=== PATIENT | female | born 1955 | race Caucasian/White ===

== ENCOUNTER → 2023-09-02 11:05 | Outpatient (REF) | payer MEDICARE, SELFPAY ==
[2023-09-02 13:27] LABS: ALT (SGPT) 29 U/L (0-35); AST (SGOT) 23 U/L (14-36); Albumin 4.6 g/dl (3.5-5.0); Alkaline Phosphatase 91 U/L (38-126); Blood Urea Nitrogen 22 mg/dl (7-17); Calcium 10.1 mg/dl (8.4-10.2); Carbon Dioxide 28 mmol/L (22-30); Chloride 98 mmol/L (98-107); Glucose 91 mg/dl (70-99); Iron 100 ug/dl (37-170); Potassium 4.4 mmol/L (3.5-5.1); Sodium 134 mmol/L (135-145); Total Bilirubin 0.4 mg/dl (0.2-1.3); Total Protein 7.3 g/dl (6.3-8.2); eGFR > 60.00
[2023-09-02 13:36] LABS: Percent Saturation 32 % (20-50); Total Iron Binding Capacity 304 ug/dl (265-497)
[2023-09-02 13:44] LABS: Free T3 2.92 pg/ml (2.77-5.27); Free T4 0.69 ng/dl (0.78-2.19); Vitamin D, 25-OH*** 83.1 ng/mL (30-80)
[2023-09-02 13:57] LABS: TSH 1.45 uIU/ml (0.47-4.68)
[2023-09-02 14:30] LABS: Glycohemoglobin (HgbA1c) 5.7 % (4.0-5.6)
== END ==
LOC: REG 11:05
PROVIDERS: ATTENDING PHYSICIAN Internal Medicine Endocrinology, Diabetes & Metabolism
DX: E03.9 Hypothyroidism, unspecified (principal); R73.09 Other abnormal glucose; K76.0 Fatty (change of) liver, not elsewhere classified; E55.9 Vitamin D deficiency, unspecified; E61.1 Iron deficiency
CPT/HCPCS: 36415; 80053; 82306; 82728; 83036; 83540; 83550; 84439; 84443; 84481

== ENCOUNTER → 2024-03-02 12:11 | Outpatient (REF) | payer MEDICARE, SELFPAY ==
[2024-03-02 13:21] LABS: Glycohemoglobin (HgbA1c) 5.3 % (4.0-5.6)
[2024-03-02 13:51] LABS: ALT (SGPT) 26 U/L (0-35); AST (SGOT) 20 U/L (14-36); Albumin 4.6 g/dl (3.5-5.0); Alkaline Phosphatase 75 U/L (38-126); Blood Urea Nitrogen 26 mg/dl (7-17); Calcium 9.8 mg/dl (8.4-10.2); Carbon Dioxide 27 mmol/L (22-30); Chloride 103 mmol/L (98-107); Glucose 94 mg/dl (70-99); Magnesium 1.7 mg/dl (1.6-2.3); Potassium 5.1 mmol/L (3.5-5.1); Sodium 142 mmol/L (135-145); Total Bilirubin 0.4 mg/dl (0.2-1.3); Total Protein 7.2 g/dl (6.3-8.2); eGFR > 60.00
[2024-03-02 13:59] LABS: Free T4 0.56 ng/dl (0.78-2.19); Vitamin D, 25-OH*** 71.7 ng/mL (30-80)
[2024-03-02 14:07] LABS: Free T3 2.73 pg/ml (2.77-5.27)
[2024-03-02 14:12] LABS: TSH 4.37 uIU/ml (0.47-4.68)
== END ==
LOC: REG 12:11
PROVIDERS: ATTENDING PHYSICIAN Internal Medicine Endocrinology, Diabetes & Metabolism
DX: E03.9 Hypothyroidism, unspecified (principal); R73.09 Other abnormal glucose; Z13.1 Encounter for screening for diabetes mellitus; K76.0 Fatty (change of) liver, not elsewhere classified; L65.9 Nonscarring hair loss, unspecified; E61.1 Iron deficiency; E55.9 Vitamin D deficiency, unspecified
CPT/HCPCS: 36415; 80053; 82306; 82627; 83036; 83735; 84403; 84439; 84443; 84481

== ENCOUNTER → 2024-03-11 06:39 | Outpatient (REF) | payer MEDICARE, SELFPAY ==
[2024-03-11] MEDS: LEXISCAN 0.4 MG IV (08:45)
[2024-03-11] MEDS: AMINOPHYLLINE 75 MG IV (09:04)
== END ==
LOC: RCS 06:39
PROVIDERS: ATTENDING PHYSICIAN Family Medicine; FAMILY PHYSICIAN Nurse Practitioner; REFERRING PHYSICIAN Internal Medicine Endocrinology, Diabetes & Metabolism
DX: R07.89 Other chest pain (principal); Z86.79 Personal history of other diseases of the circulatory system; I51.7 Cardiomegaly
CPT/HCPCS: 71046; 78452; 93017; A9500; J2785

== ENCOUNTER → 2024-05-18 07:31 | Outpatient (REF) | payer MEDICARE, SELFPAY ==
[2024-05-18 08:16] LABS: % Eosinophils 4.8 % (0-6); % Immature Granulocytes 0.2 % (0-0.5); % Monocytes 7.8 % (1.7-9.3); % Neutrophils 56.2 % (42.2-75.2); Absolute Basophils 0.1 10^3/uL (0-0.2); Absolute Eosinophils 0.2 10^3/uL (0-0.7); Absolute Lymphocytes 1.5 10^3/uL (1.2-3.4); Absolute Monocytes 0.4 10^3/uL (0.1-0.6); Absolute Neutrophils 2.8 10^3/uL (1.4-6.5); Hematocrit 39.5 % (37.0-47.0); Mean Corp Hgb Conc. 32.9 g/dL (33.0-37.0); Mean Corpuscular Hgb 29.7 pg (27.0-31.0); Mean Corpuscular Volume 90.2 fL (81.0-99.0); Mean Platelet Volume 9.9 fL (7.4-10.4); Nucleated Red Blood Cells % 0 %; Platelet Count 256 10^3/uL (130-400); Red Blood Cell Count 4.38 10^6/uL (4.20-5.40); Red Cell Dist. Width 11.9 % (11.5-14.5)
[2024-05-18 09:04] LABS: ALT (SGPT) 26 U/L (0-35); AST (SGOT) 21 U/L (14-36); Albumin 4.5 g/dl (3.5-5.0); Alkaline Phosphatase 72 U/L (38-126); Blood Urea Nitrogen 30 mg/dl (7-17); Calcium 9.3 mg/dl (8.4-10.2); Carbon Dioxide 26 mmol/L (22-30); Chloride 99 mmol/L (98-107); Glucose 97 mg/dl (70-99); Potassium 4.5 mmol/L (3.5-5.1); Sodium 136 mmol/L (135-145); Total Bilirubin 0.5 mg/dl (0.2-1.3); Total Protein 7.2 g/dl (6.3-8.2); eGFR > 60.00
[2024-05-18 09:21] LABS: Free T3 3.18 pg/ml (2.77-5.27)
[2024-05-18 09:34] LABS: TSH 3.68 uIU/ml (0.47-4.68)
[2024-05-20 12:56] LABS: Quantiferon Mitogen minus NIL 9.99 IU/mL; Quantiferon NIL 0.01 IU/mL; Quantiferon TB Gold Plus Negative (Negative)
== END ==
LOC: REG 07:31
PROVIDERS: ATTENDING PHYSICIAN Dermatology; FAMILY PHYSICIAN Internal Medicine Endocrinology, Diabetes & Metabolism
DX: Z79.899 Other long term (current) drug therapy (principal); E03.9 Hypothyroidism, unspecified; Z73.9 Problem related to life management difficulty, unspecified; K76.0 Fatty (change of) liver, not elsewhere classified
CPT/HCPCS: 36415; 80053; 84439; 84443; 84481; 85025; 86480

== ENCOUNTER → 2024-09-16 10:49 | Outpatient (REF) | payer MEDICARE, SELFPAY ==
[2024-09-16 11:47] LABS: % Basophils 0.8 % (0-2); % Eosinophils 5.2 % (0-6); % Immature Granulocytes 0.2 % (0-0.5); % Lymphocytes 27.8 % (20.5-51.1); % Monocytes 8.5 % (1.7-9.3); % Neutrophils 57.5 % (42.2-75.2); Absolute Eosinophils 0.3 10^3/uL (0-0.7); Absolute Lymphocytes 1.4 10^3/uL (1.2-3.4); Absolute Monocytes 0.4 10^3/uL (0.1-0.6); Absolute Neutrophils 2.9 10^3/uL (1.4-6.5); Hematocrit 40.6 % (37.0-47.0); Hemoglobin 13.6 g/dL (12.0-16.0); Mean Corp Hgb Conc. 33.5 g/dL (33.0-37.0); Mean Corpuscular Hgb 30.4 pg (27.0-31.0); Mean Corpuscular Volume 90.6 fL (81.0-99.0); Mean Platelet Volume 9.9 fL (7.4-10.4); Nucleated Red Blood Cells % 0 %; Platelet Count 238 10^3/uL (130-400); Red Blood Cell Count 4.48 10^6/uL (4.20-5.40); Red Cell Dist. Width 12.1 % (11.5-14.5)
[2024-09-16 12:09] LABS: Glycohemoglobin (HgbA1c) 5.6 % (4.0-5.6)
[2024-09-16 12:13] LABS: ALT (SGPT) 30 U/L (0-35); AST (SGOT) 19 U/L (14-36); Albumin 4.1 g/dl (3.5-5.0); Alkaline Phosphatase 70 U/L (38-126); Blood Urea Nitrogen 19 mg/dl (7-17); Carbon Dioxide 27 mmol/L (22-30); Chloride 109 mmol/L (98-107); Glucose 108 mg/dl (70-99); HDL Cholesterol 48 mg/dl; Iron 129 ug/dl (37-170); LDL Cholesterol, Calculated 176 mg/dl; Magnesium 1.8 mg/dl (1.6-2.3); Potassium 4.7 mmol/L (3.5-5.1); Sodium 145 mmol/L (135-145); Total Bilirubin 0.6 mg/dl (0.2-1.3); Total Cholesterol 250 mg/dl (50-199); Total Protein 6.9 g/dl (6.3-8.2); Triglyceride 132 mg/dl (10-149); Very Low Density Lipoprotein 26 mg/dl (0-30); eGFR > 60.00
[2024-09-16 12:32] LABS: Free T3 5.49 pg/ml (2.77-5.27); Free T4 0.81 ng/dl (0.78-2.19); Vitamin D, 25-OH*** 68.2 ng/mL (30-80)
[2024-09-16 12:44] LABS: TSH 0.16 uIU/ml (0.47-4.68)
[2024-09-16 12:48] LABS: Ferritin 71.6 ng/ml (11.1-264.0)
[2024-09-16 13:05] LABS: Vitamin B12 633 pg/ml (239-931)
== END ==
LOC: REG 10:49
PROVIDERS: ATTENDING PHYSICIAN Internal Medicine Endocrinology, Diabetes & Metabolism; OTHER PHYSICIAN Nurse Practitioner
DX: E03.9 Hypothyroidism, unspecified (principal); Z79.899 Other long term (current) drug therapy; K76.0 Fatty (change of) liver, not elsewhere classified
CPT/HCPCS: 36415; 80053; 80061; 82306; 82607; 82728; 83036; 83540; 83735; 84439; 84443; 84481; 85025

== ENCOUNTER → 2025-01-01 08:36 | Outpatient (REF) | payer MEDICARE, SELFPAY ==
[2025-01-01 10:41] LABS: Free T3 5.04 pg/ml (2.77-5.27)
[2025-01-01 10:43] LABS: Iron 116 ug/dl (37-170)
[2025-01-01 10:53] LABS: Total Iron Binding Capacity 305 ug/dl (265-497)
[2025-01-01 10:55] LABS: TSH 0.36 uIU/ml (0.47-4.68)
[2025-01-01 10:59] LABS: Ferritin 86.7 ng/ml (11.1-264.0)
== END ==
LOC: REG 08:36
PROVIDERS: ATTENDING PHYSICIAN Internal Medicine Endocrinology, Diabetes & Metabolism
DX: E03.9 Hypothyroidism, unspecified (principal); E61.1 Iron deficiency; D51.9 Vitamin B12 deficiency anemia, unspecified
CPT/HCPCS: 36415; 82728; 83540; 83550; 84439; 84443; 84481

== ENCOUNTER → 2025-04-19 08:59 | Outpatient (REF) | payer MEDICARE, SELFPAY ==
[2025-04-19 10:53] LABS: Hematocrit 39.6 % (37.0-47.0); Hemoglobin 13.2 g/dL (12.0-16.0); Mean Corp Hgb Conc. 33.3 g/dL (33.0-37.0); Mean Corpuscular Volume 88.2 fL (81.0-99.0); Nucleated Red Blood Cells % 0 %; Platelet Count 283 10^3/uL (130-400); Red Cell Dist. Width 12.3 % (11.5-14.5)
[2025-04-19 11:49] LABS: C-Reactive Protein < 5.00 mg/L (0.0-10.00)
[2025-04-19 11:58] LABS: ALT (SGPT) 27 U/L (0-35); AST (SGOT) 21 U/L (14-36); Albumin 4.7 g/dl (3.5-5.0); Alkaline Phosphatase 82 U/L (38-126); Blood Urea Nitrogen 20 mg/dl (7-17); Calcium 9.7 mg/dl (8.4-10.2); Carbon Dioxide 25 mmol/L (22-30); Chloride 102 mmol/L (98-107); Glucose 101 mg/dl (70-99); Potassium 4.5 mmol/L (3.5-5.1); Sodium 134 mmol/L (135-145); Total Protein 7.7 g/dl (6.3-8.2); eGFR > 60.00
[2025-04-19 12:06] LABS: Vitamin D, 25-OH*** 84.9 ng/mL (30-80)
[2025-04-19 12:07] LABS: Free T3 3.60 pg/ml (2.77-5.27)
[2025-04-19 12:19] LABS: TSH 0.79 uIU/ml (0.47-4.68)
[2025-04-19 12:38] LABS: Glycohemoglobin (HgbA1c) 5.5 % (4.0-5.9)
== END ==
LOC: REG 08:59
PROVIDERS: ATTENDING PHYSICIAN Internal Medicine Endocrinology, Diabetes & Metabolism
DX: E03.9 Hypothyroidism, unspecified (principal); R73.09 Other abnormal glucose; E55.9 Vitamin D deficiency, unspecified; Z13.1 Encounter for screening for diabetes mellitus; M25.50 Pain in unspecified joint
CPT/HCPCS: 36415; 80053; 82306; 83036; 84439; 84443; 84481; 85025; 85652; 86140

== ENCOUNTER 2025-05-19 16:29 | Emergency (ER) | payer MEDICARE, SELFPAY ==
[2025-05-19 16:48] VITALS: BP 147/74
[2025-05-19 17:09] LABS: Hematocrit 38.0 % (37.0-47.0); Hemoglobin 12.6 g/dL (12.0-16.0); Mean Corp Hgb Conc. 33.2 g/dL (33.0-37.0); Mean Corpuscular Volume 89.0 fL (81.0-99.0); Nucleated Red Blood Cells % 0 %; Platelet Count 209 10^3/uL (130-400); Red Cell Dist. Width 12.9 % (11.5-14.5)
[2025-05-19 17:19] LABS: COVID-19 Antigen Negative (Negative)
[2025-05-19 17:29] LABS: ALT (SGPT) 25 U/L (0-35); AST (SGOT) 20 U/L (14-36); Albumin 4.4 g/dl (3.5-5.0); Alkaline Phosphatase 86 U/L (38-126); Blood Urea Nitrogen 16 mg/dl (7-17); Calcium 9.3 mg/dl (8.4-10.2); Carbon Dioxide 26 mmol/L (22-30); Glucose 114 mg/dl (70-99); Sodium 135 mmol/L (135-145); Total Protein 7.1 g/dl (6.3-8.2); eGFR > 60.00
[2025-05-19 17:59] LABS: Chloride 102 mmol/L (98-107); Potassium 3.9 mmol/L (3.5-5.1)
--- NOTE | 2025-05-19 20:33 | ED.GENMED ---
History of Present Illness
General
Chief Complaint: Cough
Source: patient and family (Daughter)
Time Seen by Provider: 05/19/25 20:24
History of Present Illness
History of Present Illness:
70-year-old female presents to the emergency room complaining of feeling unwell for the past week. She had some runny nose, cough and sore throat. Over the past couple days she has developed mild diarrhea and today while coughing had some blood in
her sputum. She describes it as pink sputum. She does not take any oral anticoagulants. She does not feel particularly short of breath.
Past History
Past History
ED Past Medical History: Hypothyroidism and Other (DM, asthma,)
ED Past Surgical History: and Tonsilectomy
Social History
Tobacco: Non-smoker
Drug: None
Living: with family
Phy Exam
Physical Exam
Physical Exam:
General: Awake, Alert, Oriented X3. No acute distress. High BMI
Vitals: unremarkable
Head: Atraumatic
Eyes: Pupils equal, EOMI
Throat: Airway intact, no exudates
Neck: Trachea midline
Lungs: Clear and equal b/l
Heart: Regular rate, no murmurs
Abd: Soft, Nontender, No pulsatile mass
Neuro: Nonfocal
Skin: Warm, dry, no rash
Extremities: pulses equal b/l, no edema
Course
Orders/Labs/Results
Orders:
Orders
05/19/25 16:59
COVID-19 Antigen Urgent
Source: Nasal Swab
Complete Blood Count/With Diff Urgent
Comprehensive Metabolic Panel Urgent
Influenza A+B Rapid Molecular Urgent
TIMUR Source: Nasal Swab
Specimen Description:
05/19/25 20:25
CR Chest - 2 Views Urgent
Comment:
Reason For Exam: cough, bloody sputum
Abnormal Lab Results
05/19/25
16:59
WBC 4.7 L 10^3/uL
(4.8-10.8)
Absolute Lymphs (auto) 0.8 L 10^3/uL
(1.2-3.4)
Lymphocytes % 17.6 L %
(20.5-51.1)
Monocytes % 12.9 H %
(1.7-9.3)
Glucose 114 H mg/dl
(70-99)
05/19/25 16:59
05/19/25 16:59
Vital Signs
Initial and Last Documented VS:
Initial Vital Signs
Pulse Resp BP Pulse Ox
77 18 147/74 93
05/19/25 16:48 05/19/25 16:48 05/19/25 16:48 05/19/25 16:48
Last Documented Vital Signs
Temp Pulse Resp BP Pulse Ox
98.8 F 72 18 156/86 96
05/19/25 16:49 05/19/25 21:32 05/19/25 21:32 05/19/25 21:32 05/19/25 21:32
MDM/Problems Addressed
Differential Diagnosis Includes:
Hemoptysis from coughing, bronchitis, mass or other lower lung pathology
MDM/Problems Addressed:
Chest x-ray is unremarkable. Labs are unremarkable. Patient's flu positive. I believe her blood-tinged sputum is related to her cough. Stay for discharge and follow-up as an
*Radiology
Radiology exam reviewed: preliminary read by ED provider (No acute abnormality on my review of the patient's chest x-ray)
*Pulse Oximetry
SaO2: 93
Patient hypoxic: no
*Critical Care Note
Total Time (30-74mins, 75-104mins- exclusive of procedures): Not Applicable
ED Attending Note
-
Portions of this chart may have been created with voice recognition software.� Occasional wrong word or��sound alike� substitutions may have occurred due to the inherent limitations of voice recognition software.
Discharge Plan
Departure
Patient Disposition: Home (Routine Discharge)
Date of Disposition: 05/19/25
Time of Disposition: 22:26
Patient with high blood pressure during this ER visit?: No
Condition: Good
Discharge Problem:
Influenza A
Instructions: Flu in adults - ED (DC)
Prescriptions:
New
benzonatate 100 mg capsule
100 mg PO TID PRN (Reason: Cough) Qty: 20 0RF
No Action
hydrochlorothiazide 25 MG tablet
25 mg PO BID
metformin 500 MG tablet extended release 24 hr
100 mg PO .EVENING
metformin 500 MG tablet extended release 24 hr
500 mg PO .MORNING
levofloxacin 500 MG tablet
500 mg PO DAILY Qty: 14 0RF
Saccharomyces boulardii [Florastor] 250 MG powder in packet
250 mg PO DAILY Qty: 14 0RF
Referrals:
Sonia Trivedi MD [Family Provider, Internal Medicine]
Activity Restrictions/Additional Instructions:
Your chest x-ray looks normal to me. Rest your labs are reassuring except of course for your flu test which is positive.
Interventions
Interventions:
*General Assessment Last Done: 05/19/25 21:26
*Neglect/Abuse Screening Last Done: 05/19/25 21:26
*ED COVID-19 Vaccine History Last Done: 05/19/25 21:26
*ED Influenza Vaccine History Last Done: 05/19/25 21:26
[facility] Fall Risk Assessment Tool Last Done: 05/19/25 21:26
*Risk Screen - Suicide (C-SSRS) Last Done: 05/19/25 21:26
ED- Pulmonary Assessment Last Done: 05/19/25 21:33
Discharge Date and Time
Print Language: THAI
[2025-05-19 21:29] VITALS: BMI 53.4
[2025-05-19 21:32] VITALS: BP 156/86
== END 2025-05-19 23:02 | disposition home or self-care (01) ==
LOC: EMR 16:29
PROVIDERS: Emergency Medicine; EMERGENCY PHYSICIAN Emergency Medicine; FAMILY PHYSICIAN Internal Medicine Endocrinology, Diabetes & Metabolism
DX: J10.2 Influenza due to other identified influenza virus with gastrointestinal manifestations (principal); J10.1 Influenza due to other identified influenza virus with other respiratory manifestations; R19.7 Diarrhea, unspecified; R04.2 Hemoptysis; R09.89 Other specified symptoms and signs involving the circulatory and respiratory systems; Z11.52 Encounter for screening for COVID-19; E03.9 Hypothyroidism, unspecified; E11.9 Type 2 diabetes mellitus without complications; J45.909 Unspecified asthma, uncomplicated
CPT/HCPCS: 99283; 71046; 80053; 85025; 87502; 87811